=== PATIENT | male | born 1955 | race Caucasian/White ===

== ENCOUNTER 2016-10-05 16:03 | Emergency (ER) | payer SELFPAY | END 2016-10-05 21:54 | disposition home or self-care (01) | LOC: D.ER 16:03 | DX: S80.862A Insect bite (nonvenomous), left lower leg, initial encounter (principal); S80.861A Insect bite (nonvenomous), right lower leg, initial encounter; W57.XXXA Bitten or stung by nonvenomous insect and other nonvenomous arthropods, initial encounter; Y93.89 Activity, other specified; Y92.89 Other specified places as the place of occurrence of the external cause; I10 Essential (primary) hypertension; F17.200 Nicotine dependence, unspecified, uncomplicated ==

== ENCOUNTER 2017-11-22 20:17 | Emergency (ER) | payer BC ==
[~2017-11-22] VITALS: Ht 180.3 cm; Wt 112.7 kg
[2017-11-22 20:27] VITALS: Ht 180.3 cm; Wt 112.7 kg
[2017-11-22] MEDS ORDERED: COREG6.25 MG PO (20:29)
[2017-11-22] MEDS ORDERED: BAYER CHEWABLE81 MG PO (20:29)
[2017-11-22 20:56] LABS: BASOPHILS 0.5 % (0-2); EOSINOPHILS 4.2 % (0-7); HEMATOCRIT 43.8 % (42.0-54.0); HEMOGLOBIN 15.4 g/dL (13.5-17.5); IMMATURE GRANULOCYTES 0.3 % (0-5); LYMPHOCYTES 31.4 % (15-50); MCH 32.5 pg (26.0-34.0); MCHC 35.2 g/dL (31.0-37.0); MCV 92.4 fL (80.0-100.0); MONOCYTES 6.7 % (2-11); NEUTROPHILS 56.9 % (40-80); PLATELET COUNT 200 10x3/uL (130-400); RBC 4.74 10x6/uL (4.20-6.10); RDW 12.8 % (11.5-14.5); WBC 7.9 10x3/uL (4.8-10.8)
[2017-11-22 21:14] LABS: ALBUMIN 3.4 g/dL (3.4-5.0); ALKALINE PHOSPHATASE 72 U/L (46-116); ALT (SGPT) 20 U/L (10-68); BILIRUBIN - TOTAL 0.23 mg/dL (0.2-1.3); CALC OSMOLALITY 282 mosm/kg (275-300); CALCIUM 8.6 mg/dL (8.5-10.1); CARBON DIOXIDE 30.7 mmol/L (21.0-32.0); CHLORIDE - SERUM 106 mmol/L (98-107); CREATININE - SERUM 1.1 mg/dL (0.6-1.3); GLUCOSE 106 mg/dL (74-106); POTASSIUM - SERUM 3.9 mmol/L (3.5-5.1); PROTEIN - SERUM 6.9 g/dL (6.4-8.2); SODIUM 141 mmol/L (136-145); UREA NITROGEN 19 mg/dL (7-18); eGFR NON AFRICAN AMERICAN 72 mL/min (90-120)
[2017-11-22 21:16] LABS: CREATINE KINASE 112 UL (21-232)
[2017-11-22 21:20] LABS: TROPONIN-I < 0.017 ng/mL (0.000-0.060)
[2017-11-22 23:14] VITALS: BP 134/72
== END 2017-11-22 23:14 | disposition home or self-care (01) ==
LOC: D.ER 20:17
PROVIDERS: Family Medicine
DX: R53.83 Other fatigue (principal); F17.200 Nicotine dependence, unspecified, uncomplicated